=== PATIENT | male | born 1985 | race Caucasian/White ===

== ENCOUNTER 2018-01-19 17:59 | Emergency (ER) | payer BC ==
[~2018-01-19] VITALS: Ht 185.4 cm; Wt 80.2 kg
[2018-01-19 18:49] LABS: HEMATOCRIT 48.9 % (38.0-50.0); HEMOGLOBIN 17.7 G/DL (12.5-16.6); MCH 34.2 PG (29.0-34.0); MCHC 36.2 G/DL (30.0-36.0); MCV 94.4 FL (86-99); PLATELET COUNT 254 K/uL (156-360); RBC DIS.WIDTH-CV 12.3 % (11.8-14.6); RBC DIS.WIDTH-SD 42.9 % (39-53); RED BLOOD COUNT 5.18 M/uL (4.00-5.50); WHITE BLOOD COUNT 9.5 K/uL (4.1-10.2)
[2018-01-19 19:00] LABS: ALBUMIN 4.8 g/dL (3.2-4.8)
[2018-01-19 19:01] LABS: CHLORIDE 106 mEq/L (99-109); POTASSIUM 3.7 mEq/L (3.7-5.4); SODIUM 141 mEq/L (136-147)
[2018-01-19 19:03] LABS: GLUCOSE 106 mg/dL (70-99); TOTAL PROTEIN 8.1 g/dL (6.4-8.3)
[2018-01-19 19:05] LABS: TOTAL BILIRUBIN 0.5 mg/dL (0.0-1.0)
[2018-01-19 19:06] LABS: ALKALINE PHOSPHATASE 69 IU/L (3-129)
[2018-01-19 19:08] LABS: AST (GOT) 18 IU/L (2-34); UREA NITROGEN (BUN) 9 mg/dL (9-23)
[2018-01-19 19:10] LABS: ALT (GPT) 13 IU/L (3-49)
[2018-01-19 19:12] LABS: GFR ESTIMATE (CALCULATED) > 59 mL/min/ (58.99-99999)
[2018-01-19 19:16] LABS: TROP-I INTERPRETATION NEGATIVE; TROPONIN-I < 0.01 ng/mL (0.0-0.30)
[2018-01-19 20:13] VITALS: BP 123/71
== END 2018-01-19 20:16 | disposition home or self-care (01) ==
LOC: EME 17:59
PROVIDERS: Physician Assistant
DX: R07.9 Chest pain, unspecified (principal); R20.0 Anesthesia of skin
CPT/HCPCS: 71046; 80053; 84484; 85027; 93005; 99281; 99284